=== PATIENT | male | born 1960 | race Caucasian/White ===

== ENCOUNTER 2019-11-12 13:47 | Emergency (ER) | payer OTHER, SELFPAY ==
[2019-11-12 14:11] VITALS: BP 130/69; PULSE 93; RESP 16; TEMP 36.1; O2SAT 96
--- NOTE | 2019-11-12 14:38 | ED.GENADULT ---
HPI - General Adult General Chief complaint: Upper Respiratory Infection Stated complaint: Cough/Sneezing/Fever/Headache Time Seen by Provider: 11/12/19 14:38 Source: patient and RN notes reviewed Limitations: no limitations History of Present Illness HPI narrative: This is a 59 years old male presented office for evaluation of congestion for a few weeks. Symptoms include head congestion, scratchy throat, cough, with chest tightness at times. Denies vomiting or diarrhea. He has tried [id number] medicine with no relief. Denies sick contact. He does not smoke. Related Data Home Medications Medication Instructions Recorded Confirmed lisinopril-hydrochlorothiazide 1 tablet PO QID 11/12/19 11/12/19 [Zestoretic] metformin [Glucophage XR] 500 mg PO BID 11/12/19 11/12/19 Allergies Allergy/AdvReac Type Severity Reaction Status Date / Time Penicillins Allergy Unknown Seizure Verified 11/12/19 14:23 Review of Systems Review of Systems: Narrative: CONSTITUTIONAL: Denies fever ENT: Reports congestion, sore throat and headache CARDIOVASCULAR: Denies chest pain RESPIRATORY: Reports cough GASTROINTESTINAL: Denies abdominal pain, nausea, vomiting GENITOURINARY: Denies urinary symptoms or discharge SKIN: Denies rash MUSCULOSKELETAL: Denies acute back pain NEUROLOGIC: Denies lightheaded PMFSH Past Medical History Medical History Diabetes mellitus, type II HTN (hypertension) Family History Family History Father Patient's father is in good health Mother Family history of seizure disorder Social History Social History Smoking status: Never smoker Gender identity (if verbalized by the patient): Male Comments At time of signature, I agree with nursing past medical, surgical, social and family history. There is no relevant family history pertinent to the presenting complaint. Exam Narrative: Exam Narrative: GENERAL: This is a well-nourished, well-developed patient, in no apparent distress. EYES: Sclera clear/white. Vision is grossly intact. EARS: External ears normal, auditory canals clear and without drainage, TMs normal without perforation. Hearing grossly intact. NOSE: External nose normal with no obvious nasal discharge, nares without redness, no rhinorrhea. THROAT: Mucous membranes moist, posterior pharynx clear. NECK: Neck supple, non-tender without lymphadenopathy, masses or thyromegaly. CARDIOVASCULAR: Regular rate and rhythm without murmurs, gallops, or rubs. RESPIRATORY: clear, except in the lower lobe noted diminished breath sounds. Breath sounds equal bilaterally. No wheezes, rales, or rhonchi. GASTROINTESTINAL: Abdomen soft, non-tender, nondistended. Bowel sounds are active. No hepato-splenomegaly, or palpable masses. No guarding. SKIN: warm, intact with no suspicious lesions or rash, good texture and turgor. NEURO: awake, alert, and oriented to person, place and time. There were no obvious focal neurologic abnormalities. Steady gait Chappell Coma Scale Eye Opening: Spontaneous 4 Chappell Coma Scale Motor: Obeys Commands 6 Beverly Coma Scale Verbal: Oriented 5 Course Vital Signs Vital signs: Vital Signs Temperature 97.0 F L 11/12/19 14:11 Pulse Rate 93 11/12/19 14:11 Respiratory Rate 16 11/12/19 14:11 Blood Pressure 130/69 11/12/19 14:11 Pulse Oximetry 96 11/12/19 14:11 Temperature 97.0 F L 11/12/19 14:11 Pulse Rate 93 11/12/19 14:11 Respiratory Rate 16 11/12/19 14:11 Blood Pressure 130/69 11/12/19 14:11 Pulse Oximetry 96 11/12/19 14:11 Medical Decision Making MDM Narrative Medical decision making narrative: Discharge instructions reviewed with patient, as well as provided in writing per nursing staff. The instructions also include specific and strict return/GO TO THE ER as well as f
== END 2019-11-12 14:50 | disposition home or self-care (01) ==
PROVIDERS: Emergency Provider Nurse Practitioner; PCP Internal Medicine
DX: J06.9 Acute upper respiratory infection, unspecified (principal); E11.9 Type 2 diabetes mellitus without complications; I10 Essential (primary) hypertension
CPT/HCPCS: 99203; G0463

== ENCOUNTER 2020-04-22 11:35 | Emergency (ER) | payer OTHER, SELFPAY ==
[2020-04-22 11:48] VITALS: BP 148/78; PULSE 81; RESP 18; TEMP 36.3; O2SAT 98
--- NOTE | 2020-04-22 11:57 | ED.SKABFB ---
HPI - Skin/Abscess/Foreign Bdy General Chief complaint: Skin/Abscess/Foreign Body Stated complaint: spider bite Time Seen by Provider: 04/22/20 11:49 Source: patient and RN notes reviewed Mode of arrival: ambulatory Limitations: no limitations History of Present Illness HPI narrative: Patient presents today complaining of pain, redness, and swelling to his left hand after being stung or bit by an insect 3 days ago. Initially he believed it was an ingrown hair and lanced it at home, expressing a small amount of pus. States the area is now worse with increase swelling and pain. Denies fever, numbness or tingling in the hand or fingers. No history of abscesses or cellulitis. Patient does have type 2 diabetes. Currently rates pain 11/21 and has tried no [id number] interventions prior to arrival. MD complaint: insect bite/sting Related Data Home Medications Medication Instructions Recorded Confirmed lisinopril-hydrochlorothiazide 1 tablet PO QID 11/12/19 11/12/19 [Zestoretic] metformin [Glucophage XR] 500 mg PO BID 11/12/19 11/12/19 Allergies Allergy/AdvReac Type Severity Reaction Status Date / Time Penicillins Allergy Unknown Seizure Verified 11/12/19 14:23 Review of Systems Review of Systems: Narrative: CONSTITUTIONAL: Denies body aches, fever, chills, or sweats. EYES: Denies visual changes, redness, or discharge. ENT: Denies rhinorrhea, congestion, sore throat, or otalgia. CARDIOVASCULAR: Denies chest pain, palpitations, or edema. RESPIRATORY: Denies cough or dyspnea. GASTROINTESTINAL: Denies abdominal pain, nausea, vomiting, or diarrhea. GENITOURINARY: Denies dysuria or hematuria. SKIN: Swelling and redness to the left hand MUSCULOSKELETAL: Denies back pain, joint pain, or myalgia. NEUROLOGIC: Denies headache, numbness, tingling, or weakness. PSYCH: Denies depression or anxiety. [facility] Social History Social History Smoking status: Never smoker Gender identity (if verbalized by the patient): Male Comments At time of signature, I have reviewed and agree with nursing past medical, surgical, social and family history unless otherwise noted. Please see nursing chart for further information. There is no relevant family history pertinent to the presenting complaint Exam Narrative: Exam Narrative: GENERAL: Well-appearing, over-nourished, and in no acute distress. HEAD: Normocephalic, atraumatic. EYES: EOMI. No redness or drainage. Conjunctivae normal. ENT: Mucous membranes pink and moist. NECK: Normal AROM. CHEST: No respiratory distress. EXTREMITIES: Mild erythema and moderate edema of the dorsum of the left hand, starting at the 1st metacarpal and extending to the 3rd. No induration of fluctuance. Punctate area at the base of the first finger that looks like a small scab has been removed. Dorsum of the hand in affected area is tender to palpation. This is intact and hyper capillary refill normal. Radial pulse normal. Range of motion of the first finger is somewhat limited due to swelling. SKIN: Warm, dry. Capillary refill normal. Normal skin turgor. NEURO: No focal deficits. Alert and oriented x3. Gait steady. PSYCH: Normal affect. No signs of depression or anxiety. Course Vital Signs Vital signs: Vital Signs Temperature 97.3 F L 04/22/20 11:48 Pulse Rate 81 04/22/20 11:48 Respiratory Rate 18 04/22/20 11:48 Blood Pressure 148/78 H 04/22/20 11:48 Pulse Oximetry 98 04/22/20 11:48 Temperature 97.3 F L 04/22/20 11:48 Pulse Rate 81 04/22/20 11:48 Respiratory Rate 18 04/22/20 11:48 Blood Pressure 148/78 H 04/22/20 11:48 Pulse Oximetry 98 04/22/20 11:48 Reviewed. Pt has been instructed to follow up with his PCP regarding his elevated blood pressure today. MDM - Skin/Abscess/Foreign Bdy Differential Diagnosis Differential diagnosis: Likely abscess of skin or subcutaneous tissue, cellulitis, eczema, inse
== END 2020-04-22 12:06 | disposition home or self-care (01) ==
PROVIDERS: Emergency Provider Nurse Practitioner; PCP Internal Medicine
DX: L03.114 Cellulitis of left upper limb (principal); E11.9 Type 2 diabetes mellitus without complications; Z79.84 Long term (current) use of oral hypoglycemic drugs
CPT/HCPCS: 99213; G0463

== ENCOUNTER 2022-02-10 10:45 | Emergency (ER) | payer OTHER, SELFPAY ==
--- NOTE | 2022-02-10 10:48 | ED.URI ---
HPI - URI/Sore Throat General Chief Complaint: Upper Respiratory Infection Stated Complaint: COUGH/HEADACHE Time Seen by Provider: 02/10/22 10:48 Source: patient and RN notes reviewed History of Present Illness HPI Narrative: Patient is a 62-year-old male who presents the urgent care with complaints of a headache and cough. Patient states he has been taking Tylenol and use Flonase 1 time when it started 5 days ago. Patient has has negative at home COVID test and denies of any recent exposures to illness. Patient denies of any fever, nausea, vomiting, shortness of breath or wheezes. No other acute complaints. No acute distress noted. Patient aware of the plan of care Some parts of this dictation were generated by voice recognition software and may contain typographical and/or grammatical inaccuracies. Related Data Home Medications Medication Instructions Recorded Confirmed lisinopril 20 1 tablet PO QID 11/12/19 02/10/22 mg-hydrochlorothiazide 12.5 mg tablet (Zestoretic) metformin 500 mg tablet,extended 500 mg PO BID 11/12/19 02/10/22 release 24 hr (Glucophage XR) semaglutide 14 mg tablet (Rybelsus) tablet PO 02/10/22 Allergies Allergy/AdvReac Type Severity Reaction Status Date / Time Penicillins Allergy Unknown Seizure Verified 02/10/22 11:06 Review of Systems Review of Systems: CONSTITUTIONAL: Denies fever, chills, or sweats. EYES: Denies visual changes, redness, or discharge. ENT: Denies rhinorrhea, congestion, sore throat, or otalgia. CARDIOVASCULAR: Denies chest pain, palpitations, or edema. RESPIRATORY: Reports of nonproductive cough without dyspnea GASTROINTESTINAL: Denies abdominal pain, nausea, vomiting, or diarrhea. GENITOURINARY: Denies dysuria or hematuria. SKIN: Denies rash or itching. MUSCULOSKELETAL: Denies back pain, joint pain, or myalgia. NEUROLOGIC: Reports of intermittent headaches All other systems reviewed are negative, except as documented in HPI. [facility] Past Medical History Medical History (Updated 02/10/22 @ 11:29 by ADELAIDA Kirkland) Diabetes mellitus, type II HTN (hypertension) Family History Family History Father Patient's father is in good health Mother Family history of seizure disorder Social History Social History Smoking status: Never smoker Gender identity (if verbalized by the patient): Male Comments At the time of my signature, I reviewed and agree with the nursing past medical, surgical, social, and family history. There is no relevant family history pertinent to the patient complaint. Exam Narrative: GENERAL: This is a well-nourished, well-developed patient, in no apparent distress. HEAD: normocephalic, atraumatic. Frontal sinus tenderness EYES: PERRL. Sclera clear/white. Vision is grossly intact. EARS: External ears normal, auditory canals clear and without drainage, TMs normal without perforation. Hearing grossly intact. NOSE: External nose normal with no obvious nasal discharge, nares without redness, no rhinorrhea. THROAT: Mucous membranes moist, posterior pharynx clear. Moderate postnasal drainage NECK: Neck supple CARDIOVASCULAR: Regular rate and rhythm without murmurs, gallops, or rubs. RESPIRATORY: Clear to auscultation. Breath sounds equal bilaterally. No wheezes, rales, or rhonchi. SKIN: warm, intact with no suspicious lesions or rash, good texture and turgor. NEURO: awake, alert, and oriented to person, place and time. There were no obvious focal neurologic abnormalities. EXTREMITIES: No clubbing, cyanosis, or edema. Course Course Level of Care: Express Care Visit Vital Signs Vital signs: Vital Signs Temperature 96.9 F L 02/10/22 11:06 Pulse Rate 79 02/10/22 11:06 Respiratory Rate 18 02/10/22 11:06 Blood Pressure 146/76 H 02/10/22 11:06 Pulse Oximetry 97 02/10/22 11:06 Temperature 96.9 F L
[2022-02-10 11:06] VITALS: BP 146/76; PULSE 79; RESP 18; TEMP 36.1; O2SAT 97
[2022-02-10 11:08] VITALS: BP 146/76; PULSE 79; RESP 18; TEMP 36.1; O2SAT 97
== END 2022-02-10 11:40 | disposition home or self-care (01) ==
PROVIDERS: Emergency Provider Nurse Practitioner Family; PCP Nurse Practitioner Family
DX: J32.9 Chronic sinusitis, unspecified (principal); E11.9 Type 2 diabetes mellitus without complications; I10 Essential (primary) hypertension
CPT/HCPCS: 99213; G0463

== ENCOUNTER 2023-09-06 15:47 | Emergency (ER) | payer OTHER, SELFPAY | END 2023-09-06 15:48 | disposition left against medical advice (07) | PROVIDERS: Emergency Provider Nurse Practitioner; PCP Nurse Practitioner Family | DX: Z53.21 Procedure and treatment not carried out due to patient leaving prior to being seen by health care provider (principal) | CPT/HCPCS: 99199 ==

== ENCOUNTER 2023-09-06 16:23 | Emergency (ER) | payer OTHER, SELFPAY ==
[2023-09-06 16:32] VITALS: BP 145/76; PULSE 87; RESP 16; TEMP 36.6; O2SAT 97
--- NOTE | 2023-09-06 16:51 | ED.EXTPRO ---
HPI - Extremity Problem General Chief complaint: Extremity Problem,Nontraumatic Stated complaint: Leg Pain Source: patient Mode of arrival: ambulatory Limitations: no limitations History of Present Illness HPI Narrative: Patient presents for evaluation of left groin pain for last week. He believes he pulled a muscle but cannot identify any specific injury. He states that pain is usually present when getting into his car or moving from a sitting to standing position. Pain is worse in the morning and improves as the day progresses. He rates his symptoms as 7/10 severity. He indicates he cannot take NSAIDs. He is requesting a script for a muscle relaxer. No loss of ROM. No urinary symptoms or testicular/scrotal pain. No known hernia. No change in bowel pattern. Related Data Home Medications Medication Instructions Recorded Confirmed lisinopril 20 1 tablet PO QID 11/12/19 02/10/22 mg-hydrochlorothiazide 12.5 mg tablet (Zestoretic) metformin 500 mg tablet,extended 500 mg PO BID 11/12/19 02/10/22 release 24 hr (Glucophage XR) semaglutide 14 mg tablet (Rybelsus) 1 tablet PO DAILY 02/10/22 02/10/22 Allergies Allergy/AdvReac Type Severity Reaction Status Date / Time Penicillins Allergy Unknown Seizure Verified 02/10/22 11:06 Review of Systems Review of Systems: CONSTITUTIONAL: Denies fever, chills, or sweats. EYES: Denies visual changes, redness, or discharge. ENT: Denies rhinorrhea, congestion, sore throat, or otalgia. CARDIOVASCULAR: Denies chest pain, palpitations, or edema. RESPIRATORY: Denies cough or dyspnea. GASTROINTESTINAL: Denies abdominal pain, nausea, vomiting, or diarrhea. GENITOURINARY: Denies dysuria or hematuria. SKIN: Denies rash or itching. MUSCULOSKELETAL: Reports pain in the left groin. Denies back pain or joint pain NEUROLOGIC: Denies headache, numbness, dizziness, or weakness. PSYCHIATRIC: Denies anxiety or depression. [facility] Past Medical History Medical History Diabetes mellitus, type II HTN (hypertension) Surgical History Surgical History No pertinent past surgical history Family History Family History Father Patient's father is in good health Mother Family history of seizure disorder Social History Social History Smoking status: Never smoker Alcohol intake: never Substance use: never Gender identity (if verbalized by the patient): Male Exam Narrative: GENERAL: Well-appearing, well-nourished, and in no acute distress. HEAD: Normocephalic, atraumatic. EYES: PERRLA and EOMI. ENT: Nares clear, no rhinorrhea or epistaxis. Mucous membranes moist. Oropharynx without tonsillar hypertrophy exudate or other lesions. Bilateral TMs pearly dasilva nonbulging NECK: Supple. No adenopathy or masses. No carotid bruits or JVD CHEST: Clear to auscultation. No respiratory distress. No wheezes rales or rhonchi HEART: Regular rate and rhythm. No murmur heard. Normal peripheral pulses. ABDOMEN: Soft, nontender, nondistended, normal active bowel sounds. EXTREMITIES: There is mild tenderness in the left groin without any evidence of gross hernia. Normal range of motion. No edema. SKIN: Warm, dry, no rash. NEURO: No focal deficits. Alert and oriented x3. PSYCH: Normal mood and affect. Course Course Emergency Course: This is a 63-year-old male who presented for evaluation of pain in left groin. Exam is consistent with a muscle strain. No loss of range of motion. He has no urinary symptoms, testicular pain, evidence of hernia. Discharge with Flexeril. Increase hydration. Icy Hot may help. Follow up with primary provider. Go to the ER for worsening symptoms. Patient in agreement plan of care. Level of Care: Express Care Vis
== END 2023-09-06 16:55 | disposition home or self-care (01) ==
PROVIDERS: Emergency Provider Nurse Practitioner; PCP Nurse Practitioner Family
DX: S39.011A Strain of muscle, fascia and tendon of abdomen, initial encounter (principal); E11.9 Type 2 diabetes mellitus without complications; I10 Essential (primary) hypertension; X58.XXXA Exposure to other specified factors, initial encounter
CPT/HCPCS: 99213; G0463